=== PATIENT | male | born 1950 | race Caucasian/White ===

== ENCOUNTER → 2017-01-30 | Outpatient (CLI) | payer MEDICARE, BC ==
[2017-01-30 08:45] LABS: CHLORIDE,CL 103 mmol/L (98-110); SODIUM,NA 139 mmol/L (136-146)
--- NOTE | 2017-01-30 16:46 | CR ---
EXAM DATE: 01/30/17 PATIENT'S AGE: 66 Patient: VANDANA SCOTT Facility: [place], [place] Site . Site : 1950 Study: XRay Spine Lumbar [id number]/10/2017 9:34:53 AM Ordering Physician: Karen Ugalde Final Report: INDICATION: Left leg paresthesias. TECHNIQUE: Lumbar spine 3 view. COMPARISON: None FINDINGS: Bones: Alignment is normal. No fractures or significant bone lesions. There are moderate size anterior marginal osteophytes at multiple levels. Joints: There is moderate multilevel disc space narrowing. Mild degenerative changes are present in the facet joints in the mid to lower lumbar spine. Soft tissues: Unremarkable. IMPRESSION: Moderate multilevel degenerative disc and facet joint spondylosis. Dictated by Isaak Muñoz MD @ Jan 30 2017 2:49PM (Electronic Signature) Report Signed by Proxy and Original Signed Document filed in the Medical Record. [facility]
== END ==
LOC: MW.CHFP 08:01
PROVIDERS: ATTEND Student in an Organized Health Care Education/Training Program
DX: E11.9 Type 2 diabetes mellitus without complications (principal); I10 Essential (primary) hypertension; E78.5 Hyperlipidemia, unspecified; E03.9 Hypothyroidism, unspecified; R20.0 Anesthesia of skin; M16.0 Bilateral primary osteoarthritis of hip
CPT/HCPCS: 36415; 72100; 72100-26; 80053; 80061; 82044; 83036; 84443; 99214

== ENCOUNTER → 2017-02-02 | Outpatient (CLI) | payer MEDICARE, BC ==
--- NOTE | 2017-02-02 10:51 | CR ---
EXAMINATION: Pelvis and bilateral hips HISTORY: Osteoarthritis COMPARISON: CT dated 01/18/2016 TECHNIQUE: AP pelvis and 2 views of the hips bilaterally FINDINGS: There is no acute osseous abnormality, dislocation, or fracture identified. Mild joint spa ce narrowing is noted within the left hip. Subchondral sclerosis is noted bilaterally. Early osteoph yte formation is noted along the joint margins bilaterally. The SI joints are symmetric with bridgin g osteophytes. Bone mineralization is normal. IMPRESSION: 1. Degenerative changes without acute findings. 2. Mild joint space narrowing within the left hip.
== END ==
LOC: MW.CHORTHO 07:54
PROVIDERS: ATTEND Orthopaedic Surgery
DX: M16.0 Bilateral primary osteoarthritis of hip (principal); M53.9 Dorsopathy, unspecified; Z71.9 Counseling, unspecified
CPT/HCPCS: 73521; 99203; G0463

== ENCOUNTER → 2017-02-03 | Outpatient (CLI) | payer MEDICARE, BC ==
[~2017-02-03] MED LIST: Bupivacaine 0.25% 10 ML SDV INJECT STA; Iopamidol 612 MG/ML 30 ML SDV IARTIC STA; Triamcinolone Acetonide 40 MG/ML 1 ML MDV INJECT STA
--- NOTE | 2017-02-03 10:21 | CR ---
EXAMINATION: Fluoro guided left hip injection. HISTORY: Osteoarthritis FINDINGS: After written informed consent was obtained, under Fluoro guidance, using 1% lidocaine under aseptic conditions a 22-gauge spinal needle was introduced into the left hip joint. After confirmation with contrast 80 mg of Kenalog, 03 cc of Marcaine was injected into the joint. The patient tolerated the procedure well. IMPRESSION: Successful Fluoro guided left hip joint steroid injection.
== END ==
LOC: MW.DI 08:52
PROVIDERS: ATTEND Orthopaedic Surgery
DX: M16.0 Bilateral primary osteoarthritis of hip (principal)
CPT/HCPCS: 20610; 77002; J3301; Q9967

== ENCOUNTER 2017-04-27 08:57 | Day surgery (SDC) | payer MEDICARE, BC ==
[~2017-04-27 08:57] MED LIST changes: -Bupivacaine 0.25% 10 ML SDV INJECT STA; -Iopamidol 612 MG/ML 30 ML SDV IARTIC STA; +Lactated Ringers 1,000 ML IV SCH; +Lidocaine 2% 5 ML SDV ONE; +Propofol 200 MG/20 ML SDV ONE; -Triamcinolone Acetonide 40 MG/ML 1 ML MDV INJECT STA
--- NOTE | 2017-04-27 09:44 | PCM.PREANE ---
Preanesthetic Assessment - Anesthesia/Transfusion/Family Hx Anesthesia History: Prior Anesthesia Without Reaction Other Type of Anesthesia Reaction Comment: Denies any known problems, mother gets sick Family History of Anesthesia Reaction: No Transfusion History: No Prior Transfusion(s) Intubation History: Unknown - Review of Systems General: No Symptoms Pulmonary: No Symptoms Cardiovascular: No Symptoms Gastrointestinal: No symptoms Neurological: No Symptoms Other: Reports: None - Physical Assessment Height: 1.83 m Weight: 102.058 kg ASA Class: 3 Mental Status: Alert & Oriented x3 Airway Class: Mallampati = 3 Dentition: Reports: Normal Dentition Thyro-Mental Finger Breadths: 3 Mouth Opening Finger Breadths: 2 ROM/Head Extension: Full Lungs: Clear to auscultation, Normal respiratory effort Cardiovascular: Regular Rate, Regular Rhythm - Lab Values: Laboratory Last Values POC Glucose 152 mg/dL (60-110) H 04/27/17 09:28 - Allergies Allergies/Adverse Reactions: Allergies Allergy/AdvReac Type Severity Reaction Status Date / Time hydrocodone Allergy Blisters Verified 04/16/14 17:30 - Blood Blood Available: No - Anesthesia Plan Pre-Op Medication Ordered: None - Acknowledgements Anesthesia Type Planned: MAC Pt an Appropriate Candidate for the Planned Anesthesia: Yes Alternatives and Risks of Anesthesia Discussed w Pt/Guardian: Yes Pt/Guardian Understands and Agrees with Anesthesia Plan: Yes PreAnesthesia Questionnaire - Past Health History Medical/Surgical History: Denies Medical/Surgical History HEENT History: Reports: Other (See Below) Other HEENT History: wears glasses Cardiovascular History: Reports: Hypertension Respiratory History: Reports: Sleep Apnea Other Respiratory History: uses CPAP Gastrointestinal History: Reports: GERD Other Gastrointestinal History: barretts esophagus Genitourinary History: Reports: Renal Calculus Musculoskeletal History: Reports: Back Pain, Chronic, Fracture, Osteoarthritis ( bilateral hips) Other Musculoskeletal History: hx fx leg, degenerative disc disease Neurological History: Reports: Concussion Psychiatric History: Reports: None Endocrine/Metabolic History: Reports: Diabetes, Type II, Hypothyroidism, Obesity /BMI 30+ Hematologic History: Reports: None Immunologic History: Reports: None Oncologic (Cancer) History: Reports: Basal Cell Carcinoma Other Oncologic History: basal cell carcinoma to back Dermatologic History: Reports: None - Past Surgical History Head Surgeries/Procedures: Reports: None GI Surgical History: Reports: Cholecystectomy, Colonoscopy, EGD, Hernia, Inguinal Male Surgical History: Reports: Kidney Stone Extraction Musculoskeletal Surgical History: Reports: Shoulder Surgery Other Musculoskeletal Surgeries/Procedures:: hx of left shoulder surgery with hardware Dermatological Surgical History: Reports: Skin Biopsy - SUBSTANCE USE Smoking Status *Q: Former Smoker Tobacco Use Within Last Twelve Months: No Days Per Week of Alcohol Use: 1 Number of Drinks Per Day: 0 Total Drinks Per Week: 0 Recreational Drug Use History: No - HOME MEDS Home Medications: Home Meds Levothyroxine Sodium 175 mcg PO ACBRK 04/16/14 [History] Losartan/Hydrochlorothiazide [Losartan-HCTZ 100-25 MG] 1 each PO ACBRK 04/16/14 [History] metFORMIN [Glucophage] 1,000 mg PO BID 04/16/14 [History] Aspirin [Halfprin] 81 mg PO DAILY 04/21/14 [History] [place]-3S/DHA/Epa/Fish Oil [[place]-3 Fish Oil 1,400 mg Sfgl] 1 each PO DAILY 04/21 [History] Ascorbate Calcium [Vitamin C] 500 mg PO DAILY 04/21/17 [History] Ibuprofen 400 mg PO ASDIRECTED PRN 04/21/17 [History] Multivit-Min/FA/Lycopen/Lutein [Centrum Silver Men Tablet] 1 tab PO DAILY [History] Pantoprazole Sodium 40 mg PO DAILY 04/21/17 [History] Viagra 0.5 - 1 tab PO ASDIRECTED PRN 04/21/17 [History] - CURRENT (IN HOUSE) MEDS Current Meds: Current Medications Lactated Ringer's (Ringers, Lactated) 1,000 mls @ 125 mls/hr IV ASDIRECTED JENIFFER Discontinued Medications Lidocaine (Xylocaine-Mpf 2%) Confirm Administered Dose 5 ml .ROUTE .STK-MED ONE Stop: 04/27/17 08:33 Propofol (Diprivan 20 Ml) Confirm Administered Dose 400 mg .ROUTE .STK-MED ONE Stop: 04/27/17 08:33
--- NOTE | 2017-04-27 11:03 | PCM.OPNOTE ---
- General Post-Op/Procedure Note Date of Surgery/Procedure: 04/27/17 Operative Procedure(s): Esophagogastroduodenoscopy with gastric and esophageal biopsies Pre Op Diagnosis: History of Mccarty's esophagus Post-Op Diagnosis: Gastritis. Changes consistent with Mccarty's esophagus. Anesthesia Technique: MAC (ASA III) Primary Surgeon: Yovany Lancaster Condition: Good Free Text/Narrative:: Dictation [id number] CPT code 39774
[2017-04-27] MEDS ORDERED: Lactated Ringers 1,000 ML IV SCH (11:15)
--- NOTE | 2017-04-27 11:28 | PCM.POSTAN ---
POST ANESTHESIA ASSESSMENT - MENTAL STATUS Mental Status: alert, oriented - RESPIRATORY Respiratory Status: respiratory rate WNL, airway patent, O2 saturation stable - CARDIOVASCULAR CV Status: pulse rate WNL, blood pressure stable - GASTROINTESTINAL GI Status: no symptoms - POST OP HYDRATION Hydration Status: adequate & stable - OBSERVATIONS Free Text/Narrative:: no anesthesia problems
[2017-04-27 11:33] VITALS: BP 125/70
--- NOTE | 2017-04-27 12:22 | OR ---
SURGEON: Yovany Lancaster M.D. DATE OF PROCEDURE: 04/27/2017 OPERATION PERFORMED: Esophagogastroduodenoscopy with gastric and esophageal biopsies. ANESTHESIA: MAC. ASA CLASSIFICATION: III. PREOPERATIVE DIAGNOSIS: History of Mccarty's esophagus, last endoscopy more than 1 year ago. POSTOPERATIVE DIAGNOSES: 1. Mild gastritis. 2. Changes consistent with Mccarty's esophagus beginning at 31 cm from the incisors. DESCRIPTION OF PROCEDURE: The patient was taken to the endoscopy room and positioned on the endoscopy table in the supine position. Time-out was called for appropriate identification of the patient and procedure. Monitored anesthesia care was provided. The bite-block was placed between the patient's teeth. The gastroscope was inserted into the mouth and advanced without difficulty through the esophagus and stomach into the duodenum, where examination was carried out in a retrograde fashion. The duodenum shows no acute inflammatory changes or ulcerations. Stomach shows a mild gastritis. Antral biopsies were obtained to look for the presence of Helicobacter pylori. The gastroscope was retroflexed to visualize the proximal stomach. No proximal lesions were identified. Specifically no tumors or ulcers were seen. The gastroscope was then straightened and slowly withdrawn. GE junction was well defined. I do not see any evidence of hiatal hernia. The patient does demonstrate changes suggestive of Mccarty's esophagus and these extend from 31 cm from the incisors to approximately 40 cm, where the esophageal hiatus is. Multiple biopsies of the distal esophagus were obtained from multiple levels. I do not see any esophageal ulcers or any obvious tumor masses. The esophageal mucosa beginning 30 cm distal to the incisors and extending proximally appear quite healthy. The vocal cords were visualized as the scope was withdrawn and noted to move symmetrically. The gastroscope was then removed with the patient having tolerated the procedure well. He was taken to recovery room in stable condition. CANDICE / REY /[id number]
== END 2017-04-27 11:23 | disposition home or self-care (01) ==
LOC: MW.SDS 08:57
PROVIDERS: ATTEND Surgery
PROC: 0DB38ZX Excision of Lower Esophagus, Via Natural or Artificial Opening Endoscopic, Diagnostic (ICD-10-PCS; principal; 2017-04-27)
PROC: 0DB68ZX Excision of Stomach, Via Natural or Artificial Opening Endoscopic, Diagnostic (ICD-10-PCS; 2017-04-27)
DX: K22.70 Barrett's esophagus without dysplasia (principal); K29.50 Unspecified chronic gastritis without bleeding; E78.5 Hyperlipidemia, unspecified; F52.21 Male erectile disorder; K21.9 Gastro-esophageal reflux disease without esophagitis; I10 Essential (primary) hypertension; E03.9 Hypothyroidism, unspecified; M19.90 Unspecified osteoarthritis, unspecified site; K75.81 Nonalcoholic steatohepatitis (NASH); G47.33 Obstructive sleep apnea (adult) (pediatric); M16.0 Bilateral primary osteoarthritis of hip; E11.9 Type 2 diabetes mellitus without complications; E66.9 Obesity, unspecified; Z87.442 Personal history of urinary calculi; Z87.891 Personal history of nicotine dependence; Z85.828 Personal history of other malignant neoplasm of skin; Z88.5 Allergy status to narcotic agent; Z88.6 Allergy status to analgesic agent; Z79.82 Long term (current) use of aspirin; Z79.84 Long term (current) use of oral hypoglycemic drugs; Z79.899 Other long term (current) drug therapy; Z90.49 Acquired absence of other specified parts of digestive tract; Z98.890 Other specified postprocedural states; Z68.30 Body mass index [BMI] 30.0-30.9, adult; Z99.89 Dependence on other enabling machines and devices
CPT/HCPCS: 00740; 82962; 88305; 88312; J2704

== ENCOUNTER 2019-09-04 14:16 | Emergency (ER) | payer MEDICARE, BC ==
[2019-09-04] MEDS ORDERED: Sodium Chloride 0.9% 2.5 ML Syringe FLUSH PRN (14:29)
[2019-09-04] MEDS ORDERED: Sodium Chloride 0.9% 10 ML Syringe FLUSH PRN (14:29)
--- NOTE | 2019-09-04 14:34 | EDM.PDOC ---
ED HPI GENERAL MEDICAL PROBLEM - General Chief Complaint: Cardiovascular Problem Stated Complaint: PULSE COMPLAINT Time Seen by Provider: 09/04/19 14:22 - History of Present Illness INITIAL COMMENTS - FREE TEXT/NARRATIVE: HISTORY AND PHYSICAL: History of present illness: Patient is a 69-year-old male who is a history of hypertension type 2 diabetes hypothyroidism and who follows with Dr. Isbell at [facility] and presents with an hour-long episode of irregular heartbeat that occurred while he was hunting. The patient said he had a normal morning and was doing his normal activities when this occurred and he was hunting and he was walking/hiking doing some strenuous walking when this started. It occurred for about an hour and he describes it as an irregular heartbeat where he was skipping every 6 beats. There was no associated chest pain shortness of breath diaphoresis nausea vomiting abdominal pain dizziness or lightheadedness and there was no numbness weakness to his extremities. He said that it resolved spontaneously and currently he is asymptomatic. He says that he is gone hunting and done similar activities in the past and never had issues. He's had no recent fever or upper respiratory symptoms vomiting or diarrhea. He is eating and drinking normally. Is no leg pain or swelling. He says that he came in because his friend has atrial fibrillation and he thought maybe that's what had happened. Review of systems: As per history of present illness and below otherwise all systems reviewed and negative. Past medical history: As per history of present illness and as reviewed below otherwise noncontributory. Surgical history: As per history of present illness and as reviewed below otherwise noncontributory. Social history: No reported history of drug or alcohol abuse. Family history: As per history of present illness and as reviewed below otherwise noncontributory. Physical exam: General: Well-developed well-nourished man who is nontoxic and vital signs were noted by me. Patient ambulated into the ED without distress and speaks clearly and easily HEENT: Atraumatic, normocephalic, pupils reactive, negative for conjunctival pallor or scleral icterus, mucous membranes moist, throat clear, neck supple, nontender, trachea midline. Lungs: Clear to auscultation, breath sounds equal bilaterally, chest nontender. Heart: S1S2, regular, negative for clicks, rubs, or JVD. Abdomen: Soft, nondistended, nontender. Negative for masses or hepatosplenomegaly. Negative for costovertebral tenderness. Pelvis: Stable nontender. Genitourinary: Deferred. Rectal: Deferred. Extremities: Atraumatic, negative for cords or calf pain. Neurovascular unremarkable. No pedal edema or leg asymmetry and full range of motion Neuro: Awake, alert, oriented. Cranial nerves II through XII unremarkable. Cerebellum unremarkable. Motor and sensory unremarkable throughout. Exam nonfocal. Diagnostics: EKG CBC CMP INR troponin TSH magnesium level chest x-ray Therapeutics: IV O2 monitor Patient has not had any recurrence of his symptoms and he is aware of all negative testing results. 1555: Discussed this case with Dr. Benjamín Lake and he agrees that he would like a Zio patch to be placed so that we can see what is happening in the real world and that the patient has any recurrence of his symptoms. I discussed with the patient the need to keep a journal of any symptoms and reasons to return to the ED and also to schedule a follow-up appointment with Dr. Isbell. Impression: Episode of palpitations/irregular heartbeat Definitive disposition and diagnosis as appropriate pending reevaluation and review of above. - Related Data Allergies Allergy/AdvReac Type Severity Reaction Status Date / Time hydrocodone Allergy Blisters Verified 09/04/19 14:21 Home Meds: Home Meds Levothyroxine Sodium 175 mcg PO ACBRK 04/16/14 [History] Losartan/Hydrochlorothiazide [Losartan-HCTZ 100-25 MG] 1 each PO ACBRK 04/16/14 [History] [place]-3S/DHA/Epa/Fish Oil [[place]-3 Fish Oil 1,400 mg Sfgl] 1 each PO DAILY 04/21 [History] Ascorbate Calcium [Vitamin C] 1,000 mg PO DAILY 04/21/17 [History] Multivit-Min/FA/Lycopen/Lutein [Centrum Silver Men Tablet] 1 tab PO DAILY [History] Pantoprazole Sodium 40 mg PO DAILY 04/21/17 [History] L.acidoph,Paracasei, B.lactis [Probiotic] 1 each PO DAILY 10/10/18 [History] sitaGLIPtin Phos/Metformin HCl [Janumet 50-1,000 MG] 1 tab PO BIDMEALS 10/10/18 [History] Past Medical History - Past Health History Medical/Surgical History: Denies Medical/Surgical History HEENT History: Reports: Other (See Below) Other HEENT History: wears glasses Cardiovascular History: Reports: Hypertension Respiratory History: Reports: Pneumonia, Recurrent, Sleep Apnea Other Respiratory History: uses CPAP Gastrointestinal History: Reports: GERD Other Gastrointestinal History: barretts esophagus Genitourinary History: Reports: Renal Calculus Musculoskeletal History: Reports: Back Pain, Chronic, Fracture, Osteoarthritis Other Musculoskeletal History: hx fx leg, degenerative disc disease Neurological History: Reports: Concussion Psychiatric History: Reports: None Endocrine/Metabolic History: Reports: Diabetes, Type II, Hypothyroidism, Obesity /BMI 30+ Hematologic History: Reports: None Immunologic History: Reports: None Oncologic (Cancer) History: Reports: Basal Cell Carcinoma Other Oncologic History: basal cell carcinoma to back Dermatologic History: Reports: None - Infectious Disease History Infectious Disease History: Reports: None - Past Surgical History Head Surgeries/Procedures: Reports: None HEENT Surgical History: Reports: None Cardiovascular Surgical History: Reports: None Respiratory Surgical History: Reports: None GI Surgical History: Reports: Cholecystectomy, Colonoscopy, EGD, Hernia, Inguinal Male Surgical History: Reports: Kidney Stone Extraction Endocrine Surgical History: Reports: None Neurological Surgical History: Reports: None Musculoskeletal Surgical History: Reports: Shoulder Surgery Other Musculoskeletal Surgeries/Procedures:: hx of left shoulder surgery with hardware Oncologic Surgical History: Reports: None Dermatological Surgical History: Reports: Skin Biopsy Social & Family History - Family History Family Medical History: Noncontributory - Tobacco Use Smoking Status *Q: Never Smoker Second Hand Smoke Exposure: No - Caffeine Use Caffeine Use: Reports: None - Recreational Drug Use Recreational Drug Use: No ED ROS GENERAL - Review of Systems Review Of Systems: Comprehensive ROS is negative, except as noted in HPI. ED EXAM, GENERAL - Physical Exam Exam: See Below (see Dictation) Course - Vital Signs Last Recorded V/S: Last Vital Signs Temp 37.1 C 09/04/19 14:23 Pulse 89 09/04/19 14:23 Resp 18 09/04/19 14:23 BP 158/81 H 09/04/19 14:23 Pulse Ox 95 09/04/19 14:28 - Orders/Labs/Meds Orders: Active Orders 24 hr Category Date Time Status Cardiac Monitoring [RC] . DIRECTED Care 09/04/19 14:28 Active EKG Documentation Completion [RC] STAT Care 09/04/19 14:28 Active Oxygen Therapy, ED [RC] ASDIRECTED Care 09/04/19 14:28 Active Pulse Oximetry [RC] ASDIRECTED Care 09/04/19 14:28 Active Zio Holter Monitor > 48 Hours [] CONTINUOUS Care 09/04/19 15:53 Ordered UA RFX JUAN AND CULT IF INDIC [URIN] Stat Lab 09/04/19 14:29 Ordered Sodium Chloride 0.9% [Saline Flush] Med 09/04/19 14:29 Active 10 ml FLUSH ASDIRECTED PRN Sodium Chloride 0.9% [Saline Flush] Med 09/04/19 14:29 Active 2.5 ml FLUSH ASDIRECTED PRN Saline Lock Insert [OM.PC] Stat Oth 09/04/19 14:28 Ordered Medication Orders Sodium Chloride (Saline Flush) 10 ml FLUSH ASDIRECTED PRN PRN Reason: Keep Vein Open Sodium Chloride (Saline Flush) 2.5 ml FLUSH ASDIRECTED PRN PRN Reason: Keep Vein Open Labs: Laboratory Tests 09/04/19 09/04/19 09/04/19 Range/Units 14:32 14:32 14:32 WBC 10.58 (4.0-11.0) K/uL RBC 5.38 (4.50-5.90) M/uL Hgb 15.8 (13.0-17.0) g/dL Hct 45.5 (38.0-50.0) % MCV 84.6 (80.0-98.0) fL MCH 29.4 (27.0-32.0) pg MCHC 34.7 (31.0-37.0) g/dL RDW Std Deviation 40.7 (28.0-62.0) fl RDW Coeff of Davide 14 (11.0-15.0) % Plt Count 210 (150-400) K/uL MPV 10.10 (7.40-12.00) fL Neut % (Auto) 64.3 (48.0-80.0) % Lymph % (Auto) 26.3 (16.0-40.0) % Gaines % (Auto) 9.1 (0.0-15.0) % Eos % (Auto) 0.0 (0.0-7.0) % Baso % (Auto) 0.3 (0.0-1.5) % Neut # (Auto) 6.8 H (1.4-5.7) K/uL Lymph # (Auto) 2.8 H (0.6-2.4) K/uL Gaines # (Auto) 1.0 H (0.0-0.8) K/uL Eos # (Auto) 0.0 (0.0-0.7) K/uL Baso # (Auto) 0.0 (0.0-0.1) K/uL Nucleated RBC % 0.0 /100WBC Nucleated RBCs # 0 K/uL INR 1.05 Sodium 140 (136-148) mmol/L Potassium 3.7 (3.5-5.1) mmol/L Chloride 101 (98-107) mmol/L Carbon Dioxide 26.3 (21.0-32.0) mmol/L BUN 24 H (7.0-18.0) mg/dL Creatinine 0.8 (0.8-1.3) mg/dL Est Cr Clr Drug Dosing TNP Estimated GFR (MDRD) > 60.0 ml/min Glucose 123 H (74-106) mg/dL Calcium 9.7 (8.5-10.1) mg/dL Magnesium 1.8 (1.8-2.4) mg/dL Total Bilirubin 1.0 (0.2-1.0) mg/dL AST 41 H (15-37) IU/L ALT 93 H (14-63) IU/L Alkaline Phosphatase 63 (46-116) U/L Troponin I < 0.050 (0.000-0.056) ng/mL Total Protein 7.8 (6.4-8.2) g/dL Albumin 4.3 (3.4-5.0) g/dL Globulin 3.5 (2.6-4.0) g/dL Albumin/Globulin Ratio 1.2 (0.9-1.6) TSH 3rd Generation 1.14 (0.36-3.74) uIU/mL Meds: Medications Generic Name Dose Route Start Last Admin Trade Name Freq PRN Reason Stop Dose Admin Sodium Chloride 10 ml 09/04/19 14:29 Saline Flush FLUSH ASDIRECTED PRN Keep Vein Open Sodium Chloride 2.5 ml 09/04/19 14:29 Saline Flush FLUSH ASDIRECTED PRN Keep Vein Open Departure - Departure Time of Disposition: 16:00 Disposition: Home, Self-Care 01 Reason for Transfer *Q: Primary PCI Indicated Condition: Good Clinical Impression: Palpitations Referrals: PCP,Unknown [Primary Care Provider] - Forms: ED Department Discharge Additional Instructions: The following information is given to patients seen in the emergency department who are being discharged to home. This information is to outline your options for follow-up care. We provide all patients seen in our emergency department with a follow-up referral. The need for follow-up, as well as the timing and circumstances, are variable depending upon the specifics of your emergency department visit. If you don't have a primary care physician on staff, we will provide you with a referral. We always advise you to contact your personal physician following an emergency department visit to inform them of the circumstance of the visit and for follow-up with them and/or the need for any referrals to a consulting specialist. The emergency department will also refer you to a specialist when appropriate. This referral assures that you have the opportunity for followup care with a specialist. All of these measure are taken in an effort to provide you with optimal care, which includes your followup. Under all circumstances we always encourage you to contact your private physician who remains a resource for coordinating your care. When calling for followup care, please make the office aware that this follow-up is from your recent emergency room visit. If for any reason you are refused follow-up, please contact the [facility] emergency department at and ask to speak to the emergency department charge nurse. [address] [place] [address] Please record any new events of palpitations heart missing beats or racing heart as we discussed. Please follow the instructions given to you by the respiratory therapist to return the Zio monitor. Call and schedule a follow-up appointment with Dr. Benjamín Lake and return to ER as needed and as discussed - My Orders Last 24 Hours: My Active Orders 09/04/19 14:28 Cardiac Monitoring [RC] . DIRECTED EKG Documentation Completion [RC] STAT Oxygen Therapy, ED [RC] ASDIRECTED Pulse Oximetry [RC] ASDIRECTED Saline Lock Insert [OM.PC] Stat 09/04/19 14:29 UA RFX JUAN AND CULT IF INDIC [URIN] Stat Sodium Chloride 0.9% [Saline Flush] 10 ml FLUSH ASDIRECTED PRN Sodium Chloride 0.9% [Saline Flush] 2.5 ml FLUSH ASDIRECTED PRN 09/04/19 15:53 Zio Holter Monitor > 48 Hours [RC] CONTINUOUS - Assessment/Plan Last 24 Hours: My Active Orders 09/04/19 14:28 Cardiac Monitoring [RC] . DIRECTED EKG Documentation Completion [RC] STAT Oxygen Therapy, ED [RC] ASDIRECTED Pulse Oximetry [RC] ASDIRECTED Saline Lock Insert [OM.PC] Stat 09/04/19 14:29 UA RFX JUAN AND CULT IF INDIC [URIN] Stat Sodium Chloride 0.9% [Saline Flush] 10 ml FLUSH ASDIRECTED PRN Sodium Chloride 0.9% [Saline Flush] 2.5 ml FLUSH ASDIRECTED PRN 09/04/19 15:53 Zio Holter Monitor > 48 Hours [RC] CONTINUOUS
--- NOTE | 2019-09-04 15:23 | CR ---
EXAM DATE: 09/04/19 PATIENT'S AGE: 69 Chest: Portable view of the chest was obtained. Comparison: Prior chest x-ray of 10/10/18. Multiple calcified granulomas are noted throughout both lungs. No acute parenchymal change is seen. Heart size and mediastinum are normal for portable technique. Slight tortuosity of the thoracic aorta is seen. Bony structures are grossly intact. Impression: 1. Findings as noted above. 2. Nothing acute is appreciated on portable chest x-ray. Diagnostic code #2 Report Signed by Proxy. [facility]
[2019-09-04 15:40] LABS: BLOOD UREA NITROGEN,BUN 24 mg/dL (7.0-18.0); CARBON DIOXIDE,CO2 26.3 mmol/L (21.0-32.0); CHLORIDE,CL 101 mmol/L (98-107); GLUCOSE RANDOM 123 mg/dL (74-106); POTASSIUM,K 3.7 mmol/L (3.5-5.1); SODIUM,NA 140 mmol/L (136-148)
[2019-09-04 18:11] VITALS: BP 124/67; PULSE 77
== END 2019-09-04 16:00 | disposition home or self-care (01) ==
LOC: MW.ED 14:16
DX: R00.2 Palpitations (principal); I10 Essential (primary) hypertension; K21.9 Gastro-esophageal reflux disease without esophagitis; E11.9 Type 2 diabetes mellitus without complications; Z79.899 Other long term (current) drug therapy; Z88.6 Allergy status to analgesic agent
CPT/HCPCS: 71045; 71045-26; 80053; 83735; 84443; 84484; 85025; 85610; 93005; 99285-25